=== PATIENT | male | born 1985 | race Caucasian/White ===

== ENCOUNTER 2023-01-02 16:43 | Observation (INO) | payer BC, SELFPAY ==
[2023-01-02 16:44] VITALS: PULSE 100; RESP 18; TEMP 36.4; O2SAT 96; BMI 29.2
[2023-01-02 17:12] LABS: Absolute Lymphocyte Count 1.64 X10^3/uL (0.83-4.51); Absolute Neutrophil Count 3.8 X10^3/uL (2.0-7.7); Basophil# 0.04 X10^3/uL; Basophil% 0.6 % (0-1); Eosinophils% 3.1 % (0-5); Hematocrit 43.5 % (40-54); Hemoglobin 15.4 g/dL (13.0-16.5); Lymphocyte # 1.64 X10^3/ul (0.83-4.51); Lymphocyte % 25.8 % (19-41); Mean Corp Hgb Conc 35.4 g/dL (32-36); Mean Corpuscular Hgb 33.4 pg (27.0-32.0); Mean Corpuscular Volume 94.4 fL (80-94); Mean Platelet Vol. 9.3 fl (6.2-12.0); Monocyte# 0.72 X10^3/uL; Monocyte% 11.3 % (0-10); NRBC Flagged by Analyzer 0 % (0-5); Neutrophil # 3.75 X10^3/uL (2.7-7.7); Platelet Count 212 K/mm3 (150-450); RBC Distribution Width CV 11.5 % (11.6-14.6); RBC Distribution Width SD 39.6 fl (35.1-43.9); Red Blood Count 4.61 M/mm3 (4.6-6.2); White Blood Count 6.4 K/mm3 (4.4-11.0)
[2023-01-02 17:14] VITALS: BP 141/84; PULSE 103; RESP 18; O2SAT 99
--- NOTE | 2023-01-02 17:16 | HP.PCM.HOS_ITS ---
HPI - General General Date of Admission: 01/02/23 Date of Service: 01/02/23 Chief Complaint: Alcohol use disorder HPI Narrative JOSHUA VILLATORO, is a 37 M with history of alcohol use disorder who presented to [facility] ED on 01/02/2023 for alcohol detoxification. Patient seen at bedside in the ED. Sitting comfortably in bed, conversing normally, no acute distress. Patient is quite talkative, appears mildly anxious but o therwise very comfortable. Patient reports drinking 12-18 beers daily for the last several years. Has had times where he has tried to stop drinking for several days, but then is gone back to drinking. Drinks only beer, no hard liquor. Denies any history of withdrawal symptoms but on further questioning, seems that he had some sweating, tremulousness and subjective rapid heart rate when he attempted to quit drinking. Patient is with 3 kids, works 2 jobs. States that he came in now because he recognizes that his drinking is not controlled, and he wants to quit drinking completely. He currently denies any chest pain, shortness of breath, fevers or chills, abdominal pain, sweating, tremulousness, rapid heart rate, confusion. No other acute concerns currently. Vitals in ED notable for mild tachycardia, mild hypertension, otherwise normal. CBC and CMP with no significant abnormalities. EKG showed sinus tachycardia, no ST changes. No imaging done in ED. [facility] Medical History no medical history Home Medications NK 01/02/23 [History Last Taken Unknown] Allergy/AdvReac Type Severity Reaction Status Date / Time No Known Allergies Allergy Verified 01/02/23 16:44 ROS Constitutional Constitutional: Denies change in weight, chills, fatigue, fever(s) or weakness Eyes Eyes: Denies change in vision Cardiovascular Cardiovascular: Denies chest pain, edema, lightheadedness or palpitations Respiratory/Chest Respiratory/Chest: Denies cough or shortness of breath at rest Gastrointestinal Gastrointestinal: Denies abdominal pain, constipation, diarrhea, nausea or v omiting Neurologic Neurologic: Denies abnormal speech, confusion, dizziness, headache(s), seizure- like activity or syncope Psychiatric Psychiatric: Denies anxiety Vital Signs Vital Signs Vital Signs: 01/02/23 16:44 01/02/23 17:14 Temperature 97.5 F L Temperature Source Temporal Pulse Rate 100 103 H Respiratory Rate 18 18 Blood Pressure 141/84 H Blood Pressure Mean 103 Pulse Ox 96 99 Oxygen Delivery Method Room Air Room Air Weight Weight: 87.09 kg Body Mass Index (BMI) 29.2 Physical Exam Const alert and oriented x3 Constitutional Narrative: Pleasant male, mildly anxious appearing, sitting comfortably in bed, conversing normally, no acute distress. General Appearance: cooperative and comfortable HEENT normocephalic, head/scalp atraumatic, hearing grossly normal bilaterally, nasal mucous membranes and turbinates normal and moist oral mucous membranes Eyes PERRL, EOMs intact bilaterally and conjunctivae normal Neck full ROM, no lymphadenopathy and supple Lymph Lymphatic: no lymphadenopathy noted Chest inspection of chest normal Resp normal respiratory effort, normal air movement, no use of accessory muscles and clear to auscultation bilaterally Cardio regular rate, regular rhythm, no murmurs and peripheral pulses 2+ throughout GI normal to inspection, nondistended, normoactive bowel sounds, soft to palpation, non-tender and non-distended Back/Spine normal ROM Extremity normal to inspection, full ROM and no pedal edema Skin no rashes or lesions noted Psych mental status grossly normal Results Lab / Micro Data 01/02/23 17:00 01/02/23 17:00 Labs: Laboratory Results - last 24 hr 01/02/23 17:00: WBC 6.4, RBC 4.61, Hgb 15.4, Hct 43.5, MCV 94.4 H, MCH 33.4 H, MCHC 35.4, RDW Std Deviation 39.6, RDW Coeff of Aby 11.5 L, Plt Count 212, MPV 9.3, Immature Gran % (Auto) 0.200, Neut % (Auto) 59.0, Lymph % (Auto) 25.8, [place] % (Auto) 11.3 H, Eos % (Auto) 3.1, Baso % (Auto) 0.6, Absolute Neuts (auto) 3.8, Absolute Lymphs (auto) 1.64, Nucleated RBC % 0 Assessment & Plan Assessment/Plan (1) Alcohol use disorder: PLAN: Plan Patient is a 37-year-old male with history of alcohol use disorder who presented to [facility] ED on 01/02/2023 for alcohol detoxification. 1. Alcohol use disorder Patient reports drinking 12-18 beers daily for the past several years. Does not drink hard liquor. Reports that he has quit for days at a time in the past, before going back to drinking. States that he had 1 episode of quitting for about 10 days, and seem to have fairly significant withdrawal symptoms during that time including rapid heart rate, tremulousness, sweating. Denies any history of seizures related to alcohol withdrawal. Has never gone through alcohol detoxification in the hospital before. Mildly tachycardic and hypertensive on admission. Otherwise no other withdrawal symptoms noted. ? Admit under inpatient status to [facility]. We will start phenobarbital taper with as needed orders per alcohol withdrawal order set. Folate, thiamine, multivitamin ordered. Case management consulted for alcohol use disorder resources. DVT prophylaxis: Lovenox CODE STATUS: Full code, verified Expected disposition: Home, 3 to 4 days Total clinical time spent by myself addressing the patient's medical issues, reviewing all the data, and collaborating with patient's care team: 40 minutes. Charges/Coding Visit Charges Inpatient E&M: 16934 Init Hosp L1
--- NOTE | 2023-01-02 17:24 | NURSING ---
[facility]
[2023-01-02 17:28] VITALS: BP 141/84; PULSE 103; RESP 18; TEMP 36.4; O2SAT 99
[2023-01-02 17:33] LABS: Alcohol, Blood (Medical)-Serum < 3.0 mg/dL
[2023-01-02 17:37] LABS: ALB/GLOB Ratio 1.5 RATIO (0.9-2.4); AST(SGOT) 12 U/L (15-37); Alanine Aminotransfer ALT/SGPT 33 U/L (16-61); Albumin, Serum 4.1 g/dL (3.2-5.0); Alkaline Phosphatase 62 U/L (45-117); Anion Gap 6 (5-15); BUN 6 mg/dL (7-18); BUN/Creat Ratio 5.5 RATIO (10-20); Calcium,Total 8.9 mg/dL (8.5-10.1); Chloride 106 mmol/L (98-107); EST Glomerular Filtration Rate 81 mL/min (>60); Est Glom Filt Rate - Afr Amer 98 mL/min (>60); Estimated Creatinine Clearance 90.68 ml/min; Globulin 2.8 g/dL (2.2-4.2); Glucose 112 mg/dL (74-106); Potassium 3.4 mmol/L (3.5-5.1); Protein, Total 6.9 g/dL (6.4-8.2); Sodium Level 140 mmol/L (136-145)
--- NOTE | 2023-01-02 17:39 | EX.ED.DYSGE1 ---
HPI History of Present Illness Chief Complaint: ETOH Intox Informant: patient Narrative Narrative: For detox from alcohol. Patient states in the past he has been able to detox himself. But he cannot now. He has never been through detox program. He states he is interested because he feels the alcohol is getting to the point where it is affecting his life and risking his relationship with his and children. He holds down 2 jobs. He is a functional alcoholic but he states he drinks anywhere 12-18 beers a day. He is becoming a unhappy drunk and this is really affecting his work and life. He is having no physical complaints at this time. [facility] Medical History no medical history Home Medications NK 01/02/23 [History Last Taken Unknown] Allergy/AdvReac Type Severity Reaction Status Date / Time No Known Allergies Allergy Verified 01/02/23 16:44 Social History Smoking Status: Never smoker ROS ROS ED Constitutional Constitutional ED: Denies chills or fever(s) Eyes Eyes: Denies change in vision ENT ENT ED: Denies rhinorrhea Cardiovascular Cardiovascular: Denies chest pain or palpitations Respiratory/Chest Respiratory/Chest: Denies cough or dyspnea Gastrointestinal Gastrointestinal: Reports diarrhea and other Details: States he always has soft bowel movements but that is because he drinks of large volume of beer. This is no different than any other day. ; Denies abdominal pain, nausea or vomiting Genitourinary Genitourinary ED: Denies dysuria Musculoskeletal Musculoskeletal: Denies myalgias Integumentary Denies rash Neurologic Neurologic: Denies headache(s) Endocrine Endocrinology: Denies polydipsia or polyuria Hematologic/Lymphatic Hematologic/Lymphatic: Denies easy bleeding or easy bruising Allergic/Immunologic Allergic/Immunologic ED: Denies urticaria EXAM Physical Exam Narrative Exam Narrative: Patient is awake alert no acute distress sitting comfortably in bed. HEENT shows no trauma. I see no icterus. Mucous membranes are moist. Neck is supple. Lungs are clear bilaterally. Breathing is easy and unlabored. Saturations normal at 98% on room air showing no hypoxia. Heart is regular. Rate is about 100. I hear no murmur. Pulses are normal. Abdomen is soft nontender. I do not feel a notably enlarged liver. There is no mass. Overall benign abdomen. Back shows no CVA tenderness. Extremities show no edema. 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 No sign of infection. Neurologically he is awake alert appropriate. No flight of ideas no paranoia. Const Vital Signs: 01/02/23 16:44 01/02/23 17:14 01/02/23 17:28 Temperature 97.5 F L 97.5 F L Temperature Source Temporal Oral Pulse Rate 100 103 H 103 H Respiratory Rate 18 18 18 Blood Pressure 141/84 H 141/84 H Blood Pressure Mean 103 103 Pulse Ox 96 99 99 Oxygen Delivery Method Room Air Room Air Room Air MDM MDM MDM Narrative Medical decision making narrative: BC shows no acute abnormalities. Platelets white count and hemoglobin are all normal. No indication of pancytopenia. Patient's electrolytes are normal other than minimal decrease of potassium at 3.4 that should self correct with diet. Glucose is just mildly up at 112. Liver function test are normal. Alcohol level was actually 0. This surprised me as his last drink was reportedly about 2 hours ago. He states he gets withdrawal symptoms with nausea shaking when he does not drink. I did talk with the hospitalist. Not all the blood work was back when I spoke with him including alcohol level. But this patient does drink a large amount of alcohol, has a history of withdrawal symptoms, has never been through detox and I think he does warrant inpatient management. Lab Data Attestation: I reviewed the patient's lab results. Labs: Laboratory Results - last 24 hr 01/02/23 17:00 WBC 6.4 RBC 4.61 Hgb 15.4 Hct 43.5 MCV 94.4 H MCH 33.4 H MCHC 35.4 RDW Std Deviation 39.6 RDW Coeff of Aby 11.5 L Plt Count 212 MPV 9.3 Immature Gran % (Auto) 0.200 Neut % (Auto) 59.0 Lymph % (Auto) 25.8 [place] % (Auto) 11.3 H Eos % (Auto) 3.1 Baso % (Auto) 0.6 Absolute Neuts (auto) 3.8 Absolute Lymphs (auto) 1.64 Nucleated RBC % 0 Sodium 140 Potassium 3.4 L Chloride 106 Carbon Dioxide 28.0 Anion Gap 6 BUN 6 L Creatinine 1.10 Estim Creat Clear Calc 90.68 Est GFR (MDRD) Af Amer 98 Est GFR (MDRD) Non-Af 81 BUN/Creatinine Ratio 5.5 L Glucose 112 H Calcium 8.9 Total Bilirubin 0.80 AST 12 L ALT 33 Alkaline Phosphatase 62 Total Protein 6.9 Albumin 4.1 Globulin 2.8 Albumin/Globulin Ratio 1.5 Ethyl Alcohol < 3.0 Discharge Plan Triage Chief Complaint: ETOH Intox ED Provider: Ignacio Baker Dx/Rx/DC Orders Clinical Impression: Desire for detoxification, Alcohol use disorder Primary Care Provider: Care Physician,No Primary Disposition Disposition: Acute Care Hospital [facility]
[2023-01-02 17:56] LABS: Magnesium 2.4 mg/dL (1.6-2.6)
--- NOTE | 2023-01-02 19:11 | CM.ED ---
Social Work SW introduced self and role to patient. Pt reports he is here for alcohol detox. Pt reports he has not been through detox before. Pt indicates he struggles with maintaining sobriety. Pt reports I can quit any time but eventually I go back. Pt reports when he drinks, he drinks to excess and averages 8-15 beers daily. Pt reports he has a family history of alcoholism with grandparents and parents all having a history of alcoholism. SW provided emotional support. Pt indicates that follow-up will be most important for him as he has not maintained sobriety and he will need the tools to cope without alcohol. SW notified [place] of [facility] admission. Kanwal Dotson CHAIR PAD [employer]KER, [employer]
[2023-01-02 19:19] VITALS: BMI 29.2
[2023-01-02 19:23] VITALS: BP 128/91; PULSE 74; RESP 16; TEMP 36.8; O2SAT 100
[2023-01-02] MEDS: Phenobarbital 32.4 MG Tablet 64.7999999999999972 MG PO ×2 (19:58→23:14)
[2023-01-02 23:18] VITALS: BP 126/76; PULSE 68; RESP 16; O2SAT 98
[2023-01-03 05:00] VITALS: BP 122/78; PULSE 62; RESP 16; TEMP 36.9; O2SAT 98
[2023-01-03] MEDS: Phenobarbital 32.4 MG Tablet 64.7999999999999972 MG PO ×5 (05:05→19:41)
[2023-01-03 07:51] LABS: Anion Gap 4 (5-15); BUN 11 mg/dL (7-18); BUN/Creat Ratio 11.9 RATIO (10-20); Calcium,Total 8.4 mg/dL (8.5-10.1); Chloride 110 mmol/L (98-107); Creatinine, Serum 0.92 mg/dL (0.70-1.30); EST Glomerular Filtration Rate 99 mL/min (>60); Est Glom Filt Rate - Afr Amer 119 mL/min (>60); Estimated Creatinine Clearance 108.42 ml/min; Glucose 100 mg/dL (74-106); Magnesium 2.5 mg/dL (1.6-2.6); Potassium 4.2 mmol/L (3.5-5.1); Sodium Level 140 mmol/L (136-145)
[2023-01-03 09:00] VITALS: BP 125/85; PULSE 86; RESP 18; TEMP 36.7; O2SAT 95
[2023-01-03 11:07] LABS: Uric Acid 8.6 mg/dL (3.5-7.2)
--- NOTE | 2023-01-03 11:22 | ADDICTION ---
This fha underwriter met with PT to conduct ASAM, MSE, AUDIT assessments and to plan for d/c. PT A+Ox4 and participated actively. All assessments completed and placed in PT's chart. PT plans to f/u with [facility] for follow-up treatment services. PT did not indicate a need for transportation post d/c from [facility].
[2023-01-03 13:00] VITALS: BP 129/81; PULSE 80; RESP 18; TEMP 36.7; O2SAT 94
--- NOTE | 2023-01-03 14:57 | PCM.PROGNOTE ---
Subjective Subjective Patient seen and examined. He says he has some swelling over his right great toe, and thinks it is gout because of his alcohol use. He has never been officially diagnosed with gout. He denies any withdrawal symptoms like cramps, shakes or tremors or increased sweating. Review of systems otherwise negative. He has remained hemodynamically stable. Objective Data Objective Data Vital Signs: Vital Signs Temp Pulse Resp BP Pulse Ox O2 Del Method 98.0 F 80 18 129/81 H 94 Room Air 01/03/23 13:00 01/03/23 13:00 01/03/23 13:00 01/03/23 13:00 01/03/23 13:00 01/03/23 13:00 Oxygen Delivery Method Room Air Weight: 192 lb Body Mass Index (BMI) 29.2 Intake & Output: Intake and Output for Last 24 Hours 01/01/23 01/02/23 01/03/23 23:59 23:59 23:59 Intake Total 1000 / 1000 Balance 1000 / 1000 Lab / Micro Data 01/02/23 17:00 01/03/23 06:45 Labs: Laboratory Results - last 24 hr 01/02/23 17:00: WBC 6.4, RBC 4.61, Hgb 15.4, Hct 43.5, MCV 94.4 H, MCH 33.4 H, MCHC 35.4, RDW Std Deviation 39.6, RDW Coeff of Aby 11.5 L, Plt Count 212, MPV 9.3, Immature Gran % (Auto) 0.200, Neut % (Auto) 59.0, Lymph % (Auto) 25.8, [place] % (Auto) 11.3 H, Eos % (Auto) 3.1, Baso % (Auto) 0.6, Absolute Neuts (auto) 3.8, Absolute Lymphs (auto) 1.64, Nucleated RBC % 0, Sodium 140, Potassium 3.4 L, Chloride 106, Carbon Dioxide 28.0, Anion Gap 6, BUN 6 L, Creatinine 1.10, Estim Creat Clear Calc 90.68, Est GFR (MDRD) Af Amer 98, Est GFR (MDRD) Non-Af 81, BUN/Creatinine Ratio 5.5 L, Glucose 112 H, Calcium 8.9, Magnesium 2.4, Total Bilirubin 0.80, AST 12 L, ALT 33, Alkaline Phosphatase 62, Total Protein 6.9, Albumin 4.1, Globulin 2.8, Albumin/Globulin Ratio 1.5, Ethyl Alcohol < 3.0 01/03/23 06:45: Sodium 140, Potassium 4.2, Chloride 110 H, Carbon Dioxide 26.0, Anion Gap 4 L, BUN 11, Creatinine 0.92, Estim Creat Clear Calc 108.42, Est GFR (MDRD) Af Amer 119, Est GFR (MDRD) Non-Af 99, BUN/Creatinine Ratio 11.9, Glucose 100, Uric Acid 8.6 H, Calcium 8.4 L, Magnesium 2.5 Physical Exam Const alert, oriented x3 and no apparent distress General Appearance: cooperative and well developed HEENT normocephalic, head/scalp atraumatic, moist oral mucous membranes and oropharynx normal Eyes PERRL and EOMs intact bilaterally Neck no lymphadenopathy and supple Lymph Lymphatic: no lymphadenopathy noted Resp normal respiratory effort, normal air movement and clear to auscultation bilaterally Cardio regular rate, regular rhythm, S1 normal heart sound, S2 normal heart sound and no murmurs GI normal to inspection, nondistended, normoactive bowel sounds, soft to palpation, non-tender and non-distended Extremity normal capillary refill, no clubbing, cyanosis or edema and no calf tenderness Skin Skin Narrative: mild firm swelling over right great toe, nontender General Skin Exam: no breakdown and turgor normal Neuro CN's II-XII intact bilaterally, no focal motor deficits, no sensory deficits noted and deep tendon reflexes 2+ bilaterally Motor Exam: strength 5/5 throughout Psych thought process normal and cooperative Assessment & Plan Assessment/Plan (1) Desire for detoxification: PLAN: Plan #Acute alcohol withdrawal on alcohol withdrawal protocol with phenobarbital on PO thiamine, folic acid and multivites adjunctive meds for symptomatic relief #??GOut: has some firm, minimally tender swelling over hte first right great metatarsal joint. Says he thinks it is gout. He has never been officially diagnosed with gout. Uric acid is elevated at 8.6. will start allopurinol and colchicine. #Nicotine dependence: counseled to quit. On nicotiine patch 21 mg daily. DVT prophylaxis: lovenox Charges/Coding Visit Charges Inpatient E&M: 27999 Subs Hosp L2
[2023-01-03] MEDS: Colchicine 0.6 MG TABLET 0.599999999999999978 MG PO (17:25)
[2023-01-03 19:30] VITALS: BP 133/75; PULSE 75; RESP 18; TEMP 36.6; O2SAT 96
[2023-01-04] MEDS: Phenobarbital 32.4 MG Tablet 64.7999999999999972 MG PO ×6 (00:19→19:01)
[2023-01-04 04:00] VITALS: BP 137/94; PULSE 69; RESP 16; TEMP 36.6; O2SAT 98
[2023-01-04] MEDS: Acetaminophen 325 MG Tablet 650 MG PO ×2 (04:05→10:13)
[2023-01-04] MEDS: Thiamine Hydrochloride 100 MG Tablet PO (10:11)
[2023-01-04] MEDS: Folic Acid 1 MG Tablet PO (10:11)
[2023-01-04 10:15] VITALS: BP 126/80; PULSE 76; RESP 18; TEMP 36.9; O2SAT 97
--- NOTE | 2023-01-04 11:45 | CHAPLAIN ---
Type of Pastoral Visit _x__ Initial Visit ___ Follow-up Visit ___ On-call Visit ___ General Patient Visit ___ Spiritual Assessment ___ Family Conference ___ Bereavement ___ Rapid Response ___ Code Blue ___ Other (describe below) Pastoral Care Referral From _x__ Patient ___ Family ___ Nurse ___ Physician ___ Transporter Radiology ___ Access Services Assistant ___ Other (describe below) Sacrament/Intervention _x__ Active listening ___ Anointing ___ Sikhism ___ Bereavement ___ Communion ___ Rhiannon exploration ___ _x__ Life review ___ Prayer ___ Reconciliation ___ Sacrament of Sick _x__ Supportive presence ___ Wedding ___ Other (describe below) Pastoral Comments door is open and patient is sitting up in bed alert and oriented; pt is offered presence and support; pt talks about his situation of being an alcoholic with desire to stop drinking again; pt has fiancee and children as reasons; pt speaks of a great life with plenty of work and hobbies to keep him busy and happy; pt displays insights and motivations; pt declines any further concerns but except to get through these days with nothing else to do but sit in the bed which is very unusual for me ;
--- NOTE | 2023-01-04 14:32 | PN_ITS ---
Subjective Subjective Patient seen and examined. He still does complain of some pain in his right great toe due to his probable gout. He denies any symptoms of withdrawal. Review of systems otherwise negative. Objective Data Objective Data Vital Signs: Vital Signs Temp Pulse Resp BP Pulse Ox O2 Del Method 98.4 F 76 18 126/80 H 97 Room Air 01/04/23 10:15 01/04/23 10:15 01/04/23 10:15 01/04/23 10:15 01/04/23 10:15 01/04/23 10:15 Oxygen Delivery Method Room Air Weight: 192 lb Body Mass Index (BMI) 29.2 Intake & Output: Intake and Output for Last 24 Hours 01/02/23 01/03/23 01/04/23 23:59 23:59 23:59 Intake Total 1000 / 1000 Balance 1000 / 1000 Lab / Micro Data 01/02/23 17:00 01/03/23 06:45 Physical Exam Const alert, oriented x3 and no apparent distress General Appearance: cooperative, comfortable and well developed HEENT normocephalic, head/scalp atraumatic, hearing grossly normal bilaterally, nasal mucous membranes and turbinates normal, moist oral mucous membranes and oropharynx normal Eyes PERRL, EOMs intact bilaterally and conjunctivae normal Neck full ROM, no lymphadenopathy and supple Lymph Lymphatic: no lymphadenopathy noted Chest inspection of chest normal Resp normal respiratory effort, normal air movement, no use of accessory muscles and clear to auscultation bilaterally Cardio regular rate, regular rhythm, S1 normal heart sound, S2 normal heart sound, no murmurs and peripheral pulses 2+ throughout GI normal to inspection, nondistended, normoactive bowel sounds, soft to palpation, non-tender and non-distended Back/Spine normal ROM Extremity normal to inspection, full ROM, normal capillary refill, no clubbing, cyanosis or edema, no calf tenderness and no pedal edema Skin no rashes or lesions noted Skin Narrative: mild firm swelling over right great toe, nontender General Skin Exam: no breakdown and turgor normal Neuro CN's II-XII intact bilaterally, no focal motor deficits, no sensory deficits noted and deep tendon reflexes 2+ bilaterally Motor Exam: strength 5/5 throughout Psych mental status grossly normal, thought process normal and cooperative Appearance: appropriate Assessment & Plan Assessment/Plan (1) Desire for detoxification: PLAN: Plan #Acute alcohol withdrawal * on alcohol withdrawal protocol with phenobarbital * on PO thiamine, folic acid and multivites * adjunctive meds for symptomatic relief * #Probable GOut: * has some firm, minimally tender swelling over hte first right great metatarsal joint. * Says he thinks it is gout. * He has never been officially diagnosed with gout. * Uric acid is elevated at 8.6. * Given a dose of colchicine yesterday. Still having pain. We will repeat colchicine and start on allopurinol as well as placed on prednisone and ibuprofen. * #Nicotine dependence: counseled to quit. On nicotiine patch 21 mg daily. DVT prophylaxis: lovenox Charges/Coding Visit Charges Inpatient E&M: 86861 Subs Hosp L2
[2023-01-04 15:30] VITALS: BP 132/79; PULSE 64; RESP 18; TEMP 36.6; O2SAT 99
[2023-01-04] MEDS: predniSONE 20 MG Tablet 40 MG PO (15:42)
[2023-01-04] MEDS: Colchicine 0.6 MG TABLET 0.599999999999999978 MG PO (15:42)
[2023-01-04 20:11] VITALS: BP 133/86; PULSE 82; RESP 16; TEMP 37; O2SAT 100
[2023-01-05] MEDS: Phenobarbital 32.4 MG Tablet 64.7999999999999972 MG PO ×2 (00:14→09:33)
[2023-01-05 02:11] VITALS: BP 118/63; PULSE 71; RESP 16; TEMP 36.6; O2SAT 98
[2023-01-05] MEDS: predniSONE 20 MG Tablet 40 MG PO (09:33)
[2023-01-05] MEDS: Folic Acid 1 MG Tablet PO (09:33)
[2023-01-05] MEDS: Thiamine Hydrochloride 100 MG Tablet PO (09:34)
[2023-01-05 09:40] VITALS: BP 140/82; PULSE 79; RESP 18; TEMP 36.6; O2SAT 99
--- NOTE | 2023-01-05 11:02 | DCINST_ITS ---
Discharge Instructions Diet Discharge Diet: No restrictions Activity Discharge Activity: Return to Normal Activity Weight Bearing Status: Weight bearing as tolerated Dressing / Incision Call your doctor if you observe: Fever of 101 or Higher, Shortness of breath, Dizziness, Swelling in the ankles, Chest pain and Increased palpitations (irregular heartbeat) Follow Up Care Test Results: Test results from this visit will be discussed in further detail at your follow- up appointment, if applicable. Discharge Plan Admission Admit Date/Time: 01/02/23 17:31 Primary Reason for Your Visit: acute alcohol withdrawal Attending Provider: Anneliese Bustamante Primary Care Provider: Care Physician,No Primary Consulting Providers: Shaan Robison Instructions Patient Instructions: Alcohol Addiction Discharge Orders/Prescriptions Prescriptions: New prednisone 20 mg Tablet 40 mg PO BREAKFAST Qty: 3 0RF allopurinol 100 mg tablet 100 mg PO DAILY Qty: 30 1RF Referrals / Follow Up: Tea Mathews MD [Med Staff - Active Staff] - Within 1 Month (see to establish PCP care) Care Physician,No Primary [Primary Care Provider] - Disposition Disposition (needs filled in before D/C Order can be placed): Home, Self Care
--- NOTE | 2023-01-05 11:03 | DS.PCM_ITS ---
Providers Date of Admission: 01/02/23 Date of Discharge: 01/05/23 Primary Care Physician: No Primary Care Phys Reason For Visit: ALCOHOL DETOXIFICATION Diagnosis Discharge Diagnosis (1) Desire for detoxification: Status: Acute Plan #Acute alcohol withdrawal * on alcohol withdrawal protocol with phenobarbital * on PO thiamine, folic acid and multivites * adjunctive meds for symptomatic relief * #Probable GOut: * has some firm, minimally tender swelling over hte first right great metatarsal joint. * Says he thinks it is gout. * He has never been officially diagnosed with gout. * Uric acid is elevated at 8.6. * Given a dose of colchicine yesterday. Still having pain. We will repeat colchicine and start on allopurinol as well as placed on prednisone and ibuprofen. * #Nicotine dependence: counseled to quit. On nicotiine patch 21 mg daily. DVT prophylaxis: lovenox Medications at Discharge Home Medications allopurinol 100 mg tablet 100 mg PO DAILY #30 tabs 01/05/23 prednisone 20 mg tablet 40 mg (2 x 20 mg) PO BREAKFAST #3 tabs 01/05/23 Hospital Course Operations None Procedures None Summary of Care Provided Minutes Spent on Discharge: 50 Hospital Course: Patient is a 37-year-old male with a past medical history as outlined was admitted through the ED on 01/02/2023 for acute alcohol detox. He drank about 12-18 beers daily and said he had tried to stop drinking for several days but eventually relapsed and started drinking again. He drank a beer but no hard liquor. He was admitted and managed for acute alcohol withdrawal. He was placed on alcohol withdrawal protocol with phenobarbital. He completed a 3-day detox process and tolerated it well. Hospital course was complicated by swelling on his right great toe which he thought was due to gout. His serum uric acid level was elevated. He was placed on colchicine and steroids and on discharge was given a prescription for p.o. allopurinol as well. He was counseled to quit drinking. He was discharged home on 01/05/2023. He is follow-up with his primary care doctor within 1 to 2 weeks. Patient seen and examined prior to discharge. He had no complaints and had an uneventful night. Review of systems otherwise negative. Labs and vitals reviewed. Medication reviewed and reconciled. He was referred to [facility] to establish PCP care. Physical Exam Const alert, oriented x3 and no apparent distress General Appearance: cooperative, comfortable, well kempt and well developed HEENT normocephalic, head/scalp atraumatic, hearing grossly normal bilaterally, nasal mucous membranes and turbinates normal, moist oral mucous membranes and oropharynx normal Mouth: oral and palatal mucosa normal Eyes PERRL, EOMs intact bilaterally and conjunctivae normal Neck full ROM, no lymphadenopathy and supple Lymph Lymphatic: no lymphadenopathy noted Chest inspection of chest normal and palpation of chest normal Resp normal respiratory effort, normal air movement, no retractions, no use of accessory muscles and clear to auscultation bilaterally Cardio regular rate, regular rhythm, S1 normal heart sound, S2 normal heart sound, no murmurs and peripheral pulses 2+ throughout GI normal to inspection, nondistended, normoactive bowel sounds, soft to palpation, non-tender and non-distended Back/Spine normal ROM Extremity normal to inspection, full ROM, normal capillary refill, no clubbing, cyanosis or edema, no calf tenderness and no pedal edema Skin no rashes or lesions noted Skin Narrative: mild firm swelling over right great toe, nontender General Skin Exam: no breakdown and turgor normal Neuro oriented x3, CN's II-XII intact bilaterally, moves all extremities, no focal motor deficits, no sensory deficits noted and deep tendon reflexes 2+ bilaterally Sensorium / Orientation: awake Motor Exam: strength 5/5 throughout Psych mental status grossly normal, thought process normal and cooperative Appearance: appropriate Weight / BMI Weight Weight: 192 lb Body Mass Index (BMI) 29.2 ABG / Lab / Microbiology Data 01/02/23 17:00 01/03/23 06:45 D/C Instructions Discharge Diet: No restrictions Discharge Activity: Return to Normal Activity Weight Bearing Status: Weight bearing as tolerated Call your doctor if you observe: Fever of 101 or Higher, Shortness of breath, Dizziness, Swelling in the ankles, Chest pain and Increased palpitations (irregular heartbeat) Meaningful Use Info Meaningful Use Diagnoses (Choose all that apply): None applicable Discharge Plan Admission Admit Date/Time: 01/02/23 17:31 Primary Reason for Your Visit: acute alcohol withdrawal Attending Provider: Anneliese Bustamante Primary Care Provider: Care Physician,No Primary Consulting Providers: Shaan Robison Instructions Patient Instructions: Alcohol Addiction Discharge Orders/Prescriptions Prescriptions: New prednisone 20 mg Tablet 40 mg PO BREAKFAST Qty: 3 0RF allopurinol 100 mg tablet 100 mg PO DAILY Qty: 30 1RF Referrals / Follow Up: Tea Mathews MD [Med Staff - Active Staff] - Within 1 Month (see to evelyn valencia PCP care) Care Physician,No Primary [Primary Care Provider] - Disposition Disposition (needs filled in before D/C Order can be placed): Home, Self Care Charges/Coding Visit Charges Inpatient E&M: 62019 Disch Hosp >30min
[2023-01-05 12:00] VITALS: BP 153/94; PULSE 88; RESP 18; TEMP 36.6; O2SAT 95
--- NOTE | 2023-01-05 12:21 | PHA.DC_ITS ---
Pharmacy [facility] Pharm[facility] Service has performed discharge medication reconciliation and counseling for this patient. The patient was counseled on the following discharge medications and changes in medications for homegoing were reviewed. 1. PREDNISONE 2. ALLOPURINOL The Reason for Use, instructions for use, and potential side effects were revie wed for all new medications. The patient's questions regarding all of their medications were answered. The patient was able to verbally demonstrate an understanding of their discharge medications. The patient's discharge medication list was reviewed for discrepancies and discrepancies were resolved. Medications at Discharge Home Medications allopurinol 100 mg tablet 100 mg PO DAILY #30 tabs 01/05/23 prednisone 20 mg tablet 40 mg (2 x 20 mg) PO BREAKFAST #3 tabs 01/05/23
== END 2023-01-05 12:07 | disposition home or self-care (01) | DRG 897 ==
LOC: ED 17:37 → MS3 17:44
PROVIDERS: Admitting Provider Hospitalist; Emergency Provider Emergency Medicine; Visit Provider Student in an Organized Health Care Education/Training Program
DX: F10.239 Alcohol dependence with withdrawal, unspecified (principal); F17.200 Nicotine dependence, unspecified, uncomplicated; M10.9 Gout, unspecified; Y90.0 Blood alcohol level of less than 20 mg/100 ml
CPT/HCPCS: 36415; 80048; 80053; 80320; 83735; 84550; 85025; 99221; 99283; A4216; G0378; G0480